=== PATIENT | female | born 2000 | race Caucasian/White ===

== ENCOUNTER 2020-08-24 16:07 | Observation (INO) ==
[2020-08-24 17:02] LABS: Bacteria,Urine Few per hpf (None-Few); Bilirubin,Urine Negative (Negative); Blood,Urine Negative (Negative); Clarity,Urine Turbid (Clear); Color,Urine Yellow (Yellow); Glucose,Urine (UA) Normal (Normal); Hyaline Casts,Urine Few per lpf (None Seen); Ketones,Urine Trace mg/dL (Negative); Leukocyte Esterase,Urine Negative (Negative); Mucus,Urine Few per lpf (None-Few); Nitrite,Urine Negative (Negative); Protein,Urine Trace mg/dL (Neg-Trace); RBC,Urine 0-3 per hpf (0-3); Specific Gravity,Urine 1.021 (1.010-1.025); Squamous Epithelial Cell,Urine Few per hpf (None-Few); Urobilinogen,Urine Normal (Normal); WBC,Urine 0-3 per hpf (0-3)
[2020-08-24 18:54] LABS: Candida DNA Not Detected (Not Detect); Gardnerella DNA Not Detected (Not Detect); Trichomonas DNA Not Detected (Not Detect)
== END 2020-08-24 17:25 | disposition home or self-care (01) ==
LOC: 1NENULAB
PROVIDERS: ADMIT Advanced Practice Midwife; ATTEND Advanced Practice Midwife

== ENCOUNTER 2020-09-25 14:04 | Inpatient (IN) ==
[2020-09-25] MEDS ORDERED: Ondansetron 4 MG/2 ML VIAL IVP PRN (14:13)
[2020-09-25] MEDS ORDERED: Naloxone 0.4 MG/ML INJ IVP PRN (14:13)
[2020-09-25] MEDS ORDERED: Famotidine 20 MG/2 ML VIAL IVP PRN (14:13)
[2020-09-25] MEDS ORDERED: *HR* Nalbuphine 10 MG/ML AMPUL IV PRN (14:13)
[2020-09-25] MEDS ORDERED: Azithromycin 500 MG in 0.9 % Sodium Chloride 250 ML IVPB PRN (14:13)
[2020-09-25] MEDS ORDERED: Metoclopramide 10 MG/2 ML VIAL IVP PRN (14:13)
[2020-09-25] MEDS ORDERED: Ringers Solution, Lactated 1,000 ML IVC SCH (14:15)
== END 2020-09-25 14:52 | disposition home or self-care (01) | DRG 566 ==
LOC: 1NENULAB 14:04
PROVIDERS: ADMIT Advanced Practice Midwife; ATTEND Advanced Practice Midwife

== ENCOUNTER 2020-10-03 06:06 | Inpatient (IN) ==
[2020-10-03] MEDS ORDERED: Azithromycin 500 MG in 0.9 % Sodium Chloride 250 ML IVPB PRN (06:40)
[2020-10-03] MEDS ORDERED: *HR* Nalbuphine 10 MG/ML AMPUL IV PRN (06:40)
[2020-10-03] MEDS ORDERED: Naloxone 0.4 MG/ML INJ IVP PRN (06:40)
[2020-10-03] MEDS ORDERED: Ondansetron 4 MG/2 ML VIAL IVP PRN (06:40)
[2020-10-03] MEDS ORDERED: Metoclopramide 10 MG/2 ML VIAL IVP PRN (06:40)
[2020-10-03] MEDS ORDERED: Famotidine 20 MG/2 ML VIAL IVP PRN (06:40)
[2020-10-03] MEDS ORDERED: Ringers Solution, Lactated 1,000 ML IVC SCH (06:45)
[2020-10-03 07:13] LABS: Basophils # 0.1 K/mcL (0.0-0.2); Basophils % 0.7 %; Eosinophils # 0.1 K/mcL (0.0-0.6); Eosinophils % 0.8 %; Hematocrit 32.4 % (35.3-44.9); Hemoglobin 10.7 g/dL (11.5-15.4); Lymphocytes % 25.1 %; Mean Corpuscular Hemoglobin 30.2 pg (28.0-33.3); Mean Corpuscular Volume 91.5 fL (83.0-100.0); Mean Platelet Volume 10.7 fL (9.4-12.4); Monocytes # 0.7 K/mcL (0.0-1.3); Monocytes % 5.9 %; Neutrophils # 7.9 K/mcL (1.6-8.9); Platelet Count 217 K/mcL (140-400); Red Blood Count 3.54 M/mcL (3.82-4.97); Red Cell Distribution Width 13.6 % (11.5-14.5); Segmented Neutrophils % 66.5 %; White Blood Count 11.9 K/mcL (4.3-11.1)
[2020-10-03] MEDS: miSOPROStoL 25 MCG TABLET PO PRN ×2 (08:01→16:57)
[2020-10-03] MEDS ORDERED: EPHEDrine 50 MG/ML VIAL IVP PRN (08:14)
[2020-10-03] MEDS ORDERED: *HR* FentaNYL (PF) 100 MCG/2 ML VIAL EP ONE (08:14)
[2020-10-03] MEDS ORDERED: Ropivacaine/PF 0.2% 20 ML VIAL EP ONE (08:14)
[2020-10-03] MEDS ORDERED: Epidural Premix (fent/bupiv) 110 ML EP SCH (08:15)
[2020-10-03 12:33] LABS: Amphetamine Screen,Urine Negative ng/mL (Cutoff=1000); Barbiturate Screen,Urine Negative ng/mL (Cutoff=200); Benzodiazepines Screen,Urine Negative ng/mL (Cutoff=200); Cannabinoid Screen,Urine Negative ng/mL (Cutoff = 50); Cocaine Screen,Urine Negative ng/mL (Cutoff= 300); Opiate Screen,Urine Negative ng/mL (Cutoff=300); Phencyclidine Screen,Urine Negative ng/mL (Cutoff=25)
[2020-10-03] MEDS ORDERED: *HR* FentaNYL (PF) 250 MCG/5 ML VIAL ONE (18:24)
[2020-10-03] MEDS ORDERED: Ropivacaine/PF 0.2% 20 ML VIAL ONE (18:24)
[2020-10-04] MEDS ORDERED: Oxytocin 20 units/ LR 1000 mL 20 UNIT/1,000 ML BAG IVC SCH (03:06)
[2020-10-04] MEDS ORDERED: Benzocaine/Menthol 56 GM AEROSOL SPRAY TP PRN (03:06)
[2020-10-04] MEDS ORDERED: Lanolin 7 G OINT...G. TP PRN (03:06)
[2020-10-04] MEDS ORDERED: Acetaminophen 325 MG TABLET PO PRN (03:06)
[2020-10-04] MEDS: Prenatal Vit/FA 1 EACH TABLET PO SCH (10:10)
[2020-10-04] MEDS: Ibuprofen 600 MG TABLET PO PRN ×2 (10:11→21:06)
[2020-10-05 07:39] VITALS: BP 113/67
[2020-10-05] MEDS: Prenatal Vit/FA 1 EACH TABLET PO SCH (08:18)
[2020-10-05] MEDS: Ibuprofen 600 MG TABLET PO PRN (08:18)
== END 2020-10-05 12:48 | disposition home or self-care (01) | DRG 560 ==
LOC: 1NENULAB 06:06 → 1NENUOBS 10-04 03:06
PROVIDERS: ADMIT Advanced Practice Midwife; ATTEND Advanced Practice Midwife